=== PATIENT | male | born 1985 | race Caucasian/White ===

== ENCOUNTER 2018-09-20 04:31 | Emergency (ER) | payer SELFPAY ==
[~2018-09-20] VITALS: Ht 175.3 cm; Wt 111.4 kg
[~2018-09-20 04:31] MED LIST: OMEP20 PO
[2018-09-20 04:34] VITALS: BP 134/87
== END 2018-09-20 05:28 | disposition left against medical advice (07) ==
LOC: EMS 04:32
DX: J00 Acute nasopharyngitis [common cold] (principal); Z53.21 Procedure and treatment not carried out due to patient leaving prior to being seen by health care provider